=== PATIENT | female | born 1990 | race Caucasian/White ===

== ENCOUNTER → 2016-09-30 | Outpatient (CLI) | payer OTHER ==
[~2016-09-30] MED LIST: ACET-1311 PO; BCPILLS PO; DIPH25CA65 PO; MISC-696; ONDA4TAB10 SL; PREN0.12 PO; TAMS0.4C38 PO; TRAM-10 PO
== END | disposition home or self-care (01) ==
LOC: C.LAB1850 08:13
PROVIDERS: ATTEND Obstetrics & Gynecology
DX: Z32.00 Encounter for pregnancy test, result unknown (principal)

== ENCOUNTER → 2016-10-23 | Outpatient (CLI) | payer OTHER ==
[2016-10-23 13:38] LABS: URINE APPEARANCE CLEAR (CLEAR); URINE BILIRUBIN NEG (NEG); URINE COLOR DK YELLOW; URINE NITRITE NEG (NEG); URINE SPECIFIC GRAVITY 1.023 (1.000-1.030); UROBILINOGEN NEG (NEG)
[2016-10-23 13:43] LABS: MANUAL MICROSCOPIC REQUIRED? NO; REVIEW REQ? NO
== END | disposition home or self-care (01) ==
LOC: C.LABSPEC 13:36
PROVIDERS: ATTEND Obstetrics & Gynecology
DX: O09.01 Supervision of pregnancy with history of infertility, first trimester (principal); Z3A.00 Weeks of gestation of pregnancy not specified

== ENCOUNTER → 2016-11-01 | Outpatient (CLI) | payer OTHER ==
[2016-11-01 17:29] LABS: BASO % 0.4 %; BASO ABS # 0.04 K/uL (0-0.2); COMPLETE YES; EOS % 2.8 %; HEMATOCRIT 39.3 % (37-47); IG% 0.4 %; LYMPH % 26.4 %; LYMPH ABS # 2.56 K/uL (1.2-3.4); MEAN CELL VOLUME 88.3 fL (80-100); MEAN CORPUSCULAR HEMOGLOBIN 30.3 pg (25-34); MEAN CORPUSCULAR HGB CONC 34.4 g/dl (32-36); MEAN PLATELET VOLUME 10.2 fL (7.4-10.4); PLATELET COUNT 203 K/uL (130-400); RED BLOOD COUNT 4.45 M/uL (4.2-5.4); WHITE BLOOD COUNT 9.69 K/uL (4.8-10.8)
== END | disposition home or self-care (01) ==
LOC: C.LAB1850 16:43
PROVIDERS: ATTEND Obstetrics & Gynecology
DX: O09.01 Supervision of pregnancy with history of infertility, first trimester (principal); Z3A.00 Weeks of gestation of pregnancy not specified

== ENCOUNTER → 2016-11-01 | Outpatient (CLI) | payer OTHER ==
[2016-11-05 04:24] LABS: CHLAMYDIA TRACH RNA*** NOT DETECTED (NOT DETECTED); GC (NEIS GONORRHOEAE)RNA** NOT DETECTED (NOT DETECTED)
== END | disposition home or self-care (01) ==
LOC: C.LABSPEC 17:38
PROVIDERS: ATTEND Obstetrics & Gynecology
DX: O09.01 Supervision of pregnancy with history of infertility, first trimester (principal); Z3A.00 Weeks of gestation of pregnancy not specified

== ENCOUNTER → 2016-12-27 | Outpatient (CLI) | payer OTHER ==
[~2016-12-27] MED LIST changes: -MISC-696
[2016-12-27 15:22] LABS: GTGD 50 Grams
== END | disposition home or self-care (01) ==
LOC: C.LAB1850 10:28
PROVIDERS: ATTEND Obstetrics & Gynecology
DX: O09.01 Supervision of pregnancy with history of infertility, first trimester (principal); Z3A.00 Weeks of gestation of pregnancy not specified

== ENCOUNTER 2017-01-08 18:52 | Emergency (ER) | payer OTHER ==
[~2017-01-08] VITALS: Ht 160 cm; Wt 74.5 kg
[~2017-01-08 18:52] MED LIST changes: -PREN0.12 PO
[2017-01-08 18:58] VITALS: TEMP 36.6; Ht 160 cm; Wt 74.5 kg
[2017-01-08] MEDS ORDERED: SODIUM CHLORIDE 0.9% 1000ML 1,000 ML IV ONE (19:30)
[2017-01-08] MEDS ORDERED: PREN0.12 PO (19:35)
[2017-01-08 19:51] VITALS: O2SAT 99
[2017-01-08 20:06] LABS: URINE APPEARANCE CLEAR (CLEAR); URINE BILIRUBIN NEG (NEG); URINE COLOR YELLOW; URINE NITRITE NEG (NEG); URINE PH 6.5 (4.5-7.5); URINE SPECIFIC GRAVITY 1.019 (1.000-1.030); UROBILINOGEN NEG (NEG); ZZUR CULT IF INDIC CLEAN CATCH NO
[2017-01-08 20:13] LABS: BASO % 0.2 %; BASO ABS # 0.02 K/uL (0-0.2); COMPLETE YES; HEMATOCRIT 35.6 % (37-47); IG% 0.2 %; LYMPH % 25.5 %; LYMPH ABS # 2.29 K/uL (1.2-3.4); MEAN CELL VOLUME 87.5 fL (80-100); MEAN CORPUSCULAR HEMOGLOBIN 30.2 pg (25-34); MEAN CORPUSCULAR HGB CONC 34.6 g/dl (32-36); MEAN PLATELET VOLUME 10.2 fL (7.4-10.4); MONO % 6.6 %; NEUT % 65.5 %; PLATELET COUNT 192 K/uL (130-400); RED BLOOD COUNT 4.07 M/uL (4.2-5.4); WHITE BLOOD COUNT 8.98 K/uL (4.8-10.8)
[2017-01-08 20:13] LABS: MANUAL MICROSCOPIC REQUIRED? NO; REVIEW REQ? NO
--- NOTE | 2017-01-08 20:20 | DIAGNOSTIC IMAGING REPORT ---
CHEST 2 VIEWS ROUTINE CLINICAL HISTORY: Dyspnea on exertion. 18wk . COMPARISON STUDY: Chest radiograph August 23, 2015. FINDINGS: The lung volumes are normal. No pneumothorax or pleural effusion is present. Cardiac size is normal. Mediastinal contours are normal. There is no evidence of pulmonary edema. The appearance of the chest is unchanged. IMPRESSION: No acute cardiopulmonary findings. Electronically signed by: Adolfo Rodriguez M.D. 01/08/2017 8:19 PM Dictated Date/Time: 01/08/2017 8:18 PM
[2017-01-08 20:25] LABS: BUN/CREATININE RATIO 13.1 (10-20); CALCIUM 8.8 mg/dl (8.5-10.1); CREATININE 0.54 mg/dl (0.60-1.20); MAGNESIUM 1.9 mg/dl (1.8-2.4); POTASSIUM 3.5 mmol/L (3.5-5.1)
[2017-01-08 20:35] LABS: ALB/GLOB RATIO 0.9 (0.9-2); THYROID STIMULATING HORMONE 1.66 uIu/ml (0.300-4.500)
[2017-01-08 21:05] LABS: LYME DISEASE AB IGM NEG (NEG)
[2017-01-08 21:06] LABS: LYME DISEASE AB IGG NEG (NEG)
--- NOTE | 2017-01-08 21:07 | DIAGNOSTIC IMAGING REPORT ---
BILATERAL LOWER EXTREMITY VENOUS DOPPLER CLINICAL HISTORY: Dyspnea on exertion. +preg. Recent travel COMPARISON STUDY: No previous studies for comparison. TECHNIQUE: Sonography of the deep venous system of the bilateral lower extremities was performed. Compression and augmentation were evaluated. FINDINGS: The bilateral common femoral, superficial femoral and popliteal veins were compressible. Augmentation was normal. Flow was shown within the deep calf vessels. IMPRESSION: No evidence of deep venous thrombus within the bilateral lower extremities. Electronically signed by: Adolfo Rodriguez M.D. 01/08/2017 9:06 PM Dictated Date/Time: 01/08/2017 9:05 PM
[2017-01-08 21:40] VITALS: BP 106/69; PULSE 94; O2SAT 99
--- NOTE | 2017-01-09 00:43 | EMERGENCY ROOM VISIT NOTE ---
History First contact with patient: 18:55 Chief Complaint: REFERRED BY DOCTOR Stated Complaint: TACHY History of Present Illness The patient is a 26 year old female who presents to the Emergency Room with complaints of persistent tachycardia in the 130s over the past several hours. 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 The patient is an otherwise healthy 18 week female who states that her symptoms are atypical for her. She is not experiencing lightheadedness, dizziness, neck pain, chest pain, abdominal pain, dysuria, or vaginal drainage/bleeding. The patient has not been vomiting and has been eating and drinking as normal. She states that her symptoms are worse when she stands and walks, as this is when she notices her heart rate elevate. When this occurs the patient feels somewhat short of breath without pain. She does have a recent travel history to [facility], but has not had significant pain or swelling in her bilateral legs. She rates her overall discomfort a 2/10 and has not taken anything [id number] for her symptoms. She is currently on vitamins but no other chronic medications. She has had an uncomplicated to this point. Review of Systems More than 10 systems were reviewed and otherwise negative with the exception of history of present illness. Past Medical/Surgical History Medical Problems: (1) Asthma (2) Pneumonia (3) Scoliosis (4) Tonsillectomy and adenoidectomy Family History Patient reports no known family medical history. Social History Smoking Status: Never Smoker Alcohol Use: none Drug Use: none Marital Status: single Occupation Status: employed Current/Historical Medications Scheduled Vit W/ Ferrous Fumara (), 1 TAB PO DAILY Scheduled PRN Acetaminophen (Tylenol), 650 MG PO Q8 PRN for Pain Diphenhydramine Hcl (Benadryl Allergy), 50 MG PO HS PRN for Sleep Allergies Coded Allergies: Aspirin (Verified Allergy, Severe, Stomach Pain, 01/08/17) Promethazine (Verified Allergy, Intermediate, RASH, 01/08/17) Sulfamethoxazole w/Trimethoprim (Verified Allergy, Intermediate, rash, 06/15) Physical Exam Vital Signs Date Time Temp Pulse Resp B/P (MAP) Pulse Ox O2 Delivery O2 Flow Rate FiO2 01/08/17 21:40 94 16 106/69 99 01/08/17 20:30 92 01/08/17 20:12 95 18 115/79 97 125/80 98 113/88 01/08/17 20:01 116/77 01/08/17 19:51 99 Room Air 01/08/17 18:58 36.6 93 18 122/77 99 Room Air Pain Rating (0-10): 0 Physical Exam VITALS: Vitals are noted on the nurse's note and reviewed by myself. Vital signs stable. GENERAL: Well-developed, well-nourished, white female, who is in no acute distress and resting comfortably. Patient is cooperative with the examination. HEAD: Normocephalic atraumatic. MOUTH: Mucous membranes moist. Tonsils are not enlarged. Pharynx without erythema, blood, or exudate. Uvula midline. Airway patent. NECK: Supple without nuchal rigidity. No lymphadenopathy. No thyromegaly. Cervical spine is nontender. HEART: Regular rate and rhythm without murmurs gallops or rubs. LUNGS: Clear to auscultation bilaterally without wheezes, rales or rhonchi. No retractions or accessory muscle use. ABDOMEN: Positive normal bowel sounds x 4. Soft and consistent with 18 week . No tenderness. No guarding or rebound tenderness. MUSCULOSKELETAL: No muscle atrophy, erythema, or edema noted. Full range of motion without joint tenderness in all extremities. No tenderness to palpation. Normal gait. Strength 5/5 throughout. NEURO: Patient was alert and oriented to person place and time. CN II through XII grossly intact. SKIN: The skin was without rashes, erythema, edema, or bruising. Capillary reflex less than 2 seconds. Medical Decision & Procedures ER Provider Diagnostic Interpretation: BILATERAL LOWER EXTREMITY VENOUS DOPPLER CLINICAL HISTORY: Dyspnea on exertion. +preg. Recent travel COMPARISON STUDY: No previous studies for comparison. TECHNIQUE: Sonography of the deep venous system of the bilateral lower extremities was performed. Compression and augmentation were evaluated. FINDINGS: The bilateral common femoral, superficial femoral and popliteal veins were compressible. Augmentation was normal. Flow was shown within the deep calf vessels. IMPRESSION: No evidence of deep venous thrombus within the bilateral lower extremities. CHEST 2 VIEWS ROUTINE CLINICAL HISTORY: Dyspnea on exertion. 18wk . COMPARISON STUDY: Chest radiograph August 23, 2015. FINDINGS: The lung volumes are normal. No pneumothorax or pleural effusion is present. Cardiac size is normal. Mediastinal contours are normal. There is no evidence of pulmonary edema. The appearance of the chest is unchanged. IMPRESSION: No acute cardiopulmonary findings. Laboratory Results 01/08/17 19:40 Red Blood Count 4.07, Mean Corpuscular Volume 87.5, Mean Corpuscular Hemoglobin 30.2, Mean Corpuscular Hemoglobin Concent 34.6, Mean Platelet Volume 10.2, Neutrophils (%) (Auto) 65.5, Lymphocytes (%) (Auto) 25.5, Monocytes (%) (Auto) 6.6, Eosinophils (%) (Auto) 2.0, Basophils (%) (Auto) 0.2, Neutrophils # (Auto) 5.88, Lymphocytes # (Auto) 2.29, Monocytes # (Auto) 0.59, Eosinophils # (Auto) 0.18, Basophils # (Auto) 0.02 01/08/17 19:40 Test 01/08/17 19:30 01/08/17 19:40 01/08/17 19:50 Urine Color YELLOW Urine Appearance CLEAR (CLEAR) Urine pH 6.5 (4.5-7.5) Urine Specific [place] 1.019 (1.000-1.030) Urine Protein NEG (NEG) Urine Glucose (UA) NEG (NEG) Urine Ketones NEG (NEG) Urine Occult Blood NEG (NEG) Urine Nitrite NEG (NEG) Urine Bilirubin NEG (NEG) Urine Urobilinogen NEG (NEG) Urine Leukocyte Esterase NEG (NEG) White Blood Count 8.98 K/uL (4.8-10.8) Red Blood Count 4.07 M/uL (4.2-5.4) Hemoglobin 12.3 g/dL (12.0-16.0) Hematocrit 35.6 % (37-47) Mean Corpuscular Volume 87.5 fL (80-100) Mean Corpuscular Hemoglobin 30.2 pg (25-34) Mean Corpuscular Hemoglobin Concent 34.6 g/dl (32-36) Platelet Count 192 K/uL (130-400) Mean Platelet Volume 10.2 fL (7.4-10.4) Neutrophils (%) (Auto) 65.5 % Lymphocytes (%) (Auto) 25.5 % Monocytes (%) (Auto) 6.6 % Eosinophils (%) (Auto) 2.0 % Basophils (%) (Auto) 0.2 % Neutrophils # (Auto) 5.88 K/uL (1.4-6.5) Lymphocytes # (Auto) 2.29 K/uL (1.2-3.4) Monocytes # (Auto) 0.59 K/uL (0.11-0.59) Eosinophils # (Auto) 0.18 K/uL (0-0.5) Basophils # (Auto) 0.02 K/uL (0-0.2) RDW Standard Deviation 39.9 fL (36.4-46.3) RDW Coefficient of Variation 12.5 % (11.5-14.5) Immature Granulocyte % (Auto) 0.2 % Immature Granulocyte # (Auto) 0.02 K/uL (0.00-0.02) Anion Gap 10.0 mmol/L (3-11) Est Creatinine Clear Calc Drug Dose 149.9 ml/min Estimated GFR () 148.8 Estimated GFR (Non- 128.4 BUN/Creatinine Ratio 13.1 (10-20) Calcium Level 8.8 mg/dl (8.5-10.1) Magnesium Level 1.9 mg/dl (1.8-2.4) Total Bilirubin 0.2 mg/dl (0.2-1) Aspartate Amino Transf (AST/SGOT) 11 U/L (15-37) Alanine Aminotransferase (ALT/SGPT) 21 U/L (12-78) Alkaline Phosphatase 62 U/L (45-117) Total Protein 7.0 gm/dl (6.4-8.2) Albumin 3.3 gm/dl (3.4-5.0) Globulin 3.7 gm/dl (2.5-4.0) Albumin/Globulin Ratio 0.9 (0.9-2) Thyroid Stimulating Hormone (TSH) 1.660 uIu/ml (0.300-4.500) Lyme Disease IgG Antibody NEG (NEG) Lyme Disease IgM Antibody NEG (NEG) Bedside Troponin I < 0.030 ng/ml (0-0.045) Medications Administered Medications (Trade) Dose Ordered Sig/Zeyad Route Start Time Stop Time Status Last Admin Dose Admin Sodium Chloride 1,000 ml @ 999 mls/hr Q1H1M ONCE IV 01/08/17 19:30 01/08/17 20:30 DC 01/08/17 20:12 999 MLS/HR ECG Change: Normal sinus rhythm @83 bpm Normal ECG ED Course Physical exam and history were performed. Nursing notes and EMR were reviewed. Patient appears to have had intermittent tachycardia throughout the day. She is 18 weeks . EKG was performed and was normal sinus rhythm at 83 beats per minute without evidence of ischemia or ectopy. The patient is not having abdominal pain or vaginal complaints. IV access was established and labs were obtained. Chest x-ray was performed. She has a recent travel history by car to [facility], and ultrasound of her legs was performed. heart tones were 141. The patient's blood work is as above and was reviewed. She does not have a significant elevated white blood cell count, gross anemia, bandemia, or significant electrolyte imbalance. Transaminases are nondiagnostic. Troponin 1 is negative. Urine is without evidence of infection. Chest x-ray does not show acute findings. Ultrasound of the bilateral lower extremities is without evidence of DVT. TSH is euthyroid state. On reevaluation the patient continued to be very comfortable and in no acute distress. I did offer options of a d-dimer test, with the understanding that if this was positive we would likely have to admit the patient for a VQ scan. Utilizing shared decision making the patient and we elected to defer this test, as the patient's evaluation to this point has been benign and she has been without gross tachycardia here in the department. The patient is considered very reliable, and understands that she is certainly welcome to return to the ER with any new, worsening, or concerning symptoms. Her symptoms could certainly be related to dehydration or possibly her . I do recommend that she contact her primary care physician and OB/ [facility] for appropriate follow-up. The patient will be discharged home under the care of her , who will be able to monitor her. The patient was pleased with plan of care and voiced understanding. She rated her discomfort a 0/10 at the time of departure. The chart was completed utilizing [employer] Speech Voice Recognition Software. Grammatical errors, random word insertions, pronoun errors, and incomplete sentences are an occasional consequence of this system due to software limitations, ambient noise, and hardware issues. Any formal questions or concerns about the content, text, or information contained within the body of this dictation should be directly addressed to the provider for clarification. . Medical Decision Differential diagnosis includes, but is not limited to: Myocardial infarction, dysrhythmia, pericarditis, pneumothorax, aortic aneurysm/dissection, DVT/PE, anxiety, GERD, PUD, electrolyte imbalance, thyroid disorder, pneumonia, bronchitis, pancreatitis, and others Impression Primary Impression: Tachycardia Departure Information Dispostion Home / Self-Care Condition GOOD Forms HOME CARE DOCUMENTATION FORM, Work Instructions, Additional Instructions: Patient was seen and evaluated today in the emergency department [facility]. May return to work on 01/11/2017 or sooner if feeling better. IMPORTANT VISIT INFORMATION Patient Instructions [facility] Additional Instructions You were seen and evaluated today on an emergency basis only. This is not a substitute for, or an effort to provide, complete comprehensive medical care. It is not possible to recognize and treat all injuries or illnesses in a single emergency department visit. For this reason it is recommended that you followup with your primary care physician with any ongoing or persistent symptoms. We also recommend that you contact your [facility] [employer]MAN as they may wish to see you as well. Drink plenty of fluids and remain well hydrated. You are welcome to return to the emergency department anytime with new, worsening, or concerning symptoms. Work Instructions Additional Work Instructions: Patient was seen and evaluated today in the emergency department medical care. May return to work on 01/11/2017 or sooner if feeling better.
== END 2017-01-08 21:40 | disposition home or self-care (01) ==
LOC: C.EDB 18:53 → C.EDA 21:40
DX: R00.0 Tachycardia, unspecified (principal); J45.909 Unspecified asthma, uncomplicated

== ENCOUNTER → 2017-02-12 | Outpatient (CLI) | payer OTHER ==
[~2017-02-12] MED LIST changes: -BCPILLS PO; -ONDA4TAB10 SL; +PREN0.12 PO; -TAMS0.4C38 PO; -TRAM-10 PO
--- NOTE | 2017-02-12 11:34 | DIAGNOSTIC IMAGING REPORT ---
EXAMINATION: RENAL ULTRASOUND CLINICAL HISTORY: Left flank pain COMPARISON STUDY: 08/16/2015 FINDINGS: The right kidney measures 12.1 cm. The left kidney measures 12.5 cm. There is minimal fullness of the left renal pelvis. Significant obstruction is not felt to be present as bilateral ureteral jets were delineated. There are no renal masses. There is a suspected gravid uterus. No bladder abnormalities are visualized. Bilateral ureteral jets were visualized. IMPRESSION : 1. Minimal fullness of a extrarenal left pelvis 2. Significant obstruction is not felt to be present. Bilateral ureteral jets were demonstrated Electronically signed by: Ibrahima Sewell M.D. 02/12/2017 11:33 AM Dictated Date/Time: 02/12/2017 11:30 AM
== END | disposition home or self-care (01) ==
LOC: C.ULTR 10:25
PROVIDERS: ATTEND Nurse Practitioner Adult Health
DX: R10.9 Unspecified abdominal pain (principal)

== ENCOUNTER → 2017-03-21 | Outpatient (CLI) | payer OTHER ==
[2017-03-21 14:38] LABS: URINE APPEARANCE CLEAR (CLEAR); URINE BILIRUBIN NEG (NEG); URINE COLOR DK YELLOW; URINE EPITHELIAL CELL AUTO 20-30 /lpf (0-5); URINE NITRITE NEG (NEG); URINE SPECIFIC GRAVITY 1.019 (1.000-1.030); UROBILINOGEN NEG (NEG)
[2017-03-21 14:47] LABS: MANUAL MICROSCOPIC REQUIRED? NO; REVIEW REQ? YES
== END | disposition home or self-care (01) ==
LOC: C.LABSPEC 13:48
PROVIDERS: ATTEND Obstetrics & Gynecology
DX: O09.02 Supervision of pregnancy with history of infertility, second trimester (principal); Z3A.00 Weeks of gestation of pregnancy not specified

== ENCOUNTER → 2017-03-21 | Outpatient (CLI) | payer OTHER ==
[2017-03-21 13:14] LABS: HEMATOCRIT 35.7 % (37-47)
[2017-03-21 13:42] LABS: GTGD 50 Grams
== END | disposition home or self-care (01) ==
LOC: C.LAB1850 11:01
PROVIDERS: ATTEND Obstetrics & Gynecology
DX: O09.02 Supervision of pregnancy with history of infertility, second trimester (principal); Z3A.00 Weeks of gestation of pregnancy not specified

== ENCOUNTER → 2017-03-27 | Outpatient (CLI) | payer OTHER | END | disposition home or self-care (01) | LOC: C.LAB1850 08:35 | PROVIDERS: ATTEND Obstetrics & Gynecology | DX: O28.1 Abnormal biochemical finding on antenatal screening of mother (principal); Z3A.00 Weeks of gestation of pregnancy not specified ==

== ENCOUNTER → 2017-05-12 | Outpatient (CLI) | payer OTHER | END | disposition home or self-care (01) | LOC: C.LABSPEC 15:44 | PROVIDERS: ATTEND Obstetrics & Gynecology | DX: O09.03 Supervision of pregnancy with history of infertility, third trimester (principal) ==

== ENCOUNTER 2017-05-18 11:06 | Outpatient (CLI) | payer OTHER ==
[~2017-05-18] VITALS: Ht 160 cm; Wt 83.9 kg
[2017-05-18 11:55] VITALS: Ht 160 cm; Wt 83.9 kg
[2017-05-18 12:21] LABS: BASO % 0.3 %; BASO ABS # 0.03 K/uL (0-0.2); COMPLETE YES; HEMATOCRIT 40.4 % (37-47); IG% 0.2 %; LYMPH ABS # 2.25 K/uL (1.2-3.4); MEAN CELL VOLUME 87.6 fL (80-100); MEAN CORPUSCULAR HEMOGLOBIN 29.1 pg (25-34); MEAN CORPUSCULAR HGB CONC 33.2 g/dl (32-36); MEAN PLATELET VOLUME 10.8 fL (7.4-10.4); MONO % 6.4 %; NEUT % 68.1 %; PLATELET COUNT 187 K/uL (130-400); RED BLOOD COUNT 4.61 M/uL (4.2-5.4); WHITE BLOOD COUNT 9.36 K/uL (4.8-10.8)
== END 2017-05-18 17:29 | disposition home or self-care (01) ==
LOC: C.OPB 11:06 → C.LD 11:07 → C.OPB 17:29
PROVIDERS: ATTEND Obstetrics & Gynecology
DX: O46.90 Antepartum hemorrhage, unspecified, unspecified trimester (principal); Z3A.00 Weeks of gestation of pregnancy not specified

== ENCOUNTER 2017-05-19 05:03 | Inpatient (IN) | payer OTHER ==
[~2017-05-19] VITALS: Ht 160 cm; Wt 84.0 kg
[2017-05-19 06:17] VITALS: Ht 160 cm; Wt 84.0 kg
[2017-05-19] MEDS ORDERED: ONDANSETRON INJ 2 MG/ML 2 ML VIAL IV STA (07:13)
[2017-05-19] MEDS ORDERED: LACTATED RINGER'S 1000ML 1,000 ML IV PRN (08:40)
[2017-05-19] MEDS ORDERED: BUPIVACAINE 0.25% 30 ML VIAL ONE (08:45)
[2017-05-19] MEDS ORDERED: FENTANYL CITRATE INJ 50 MCG/1 ML 2 ML VIAL ONE (08:46)
[2017-05-19] MEDS ORDERED: FENTANYL 2MCG/ML ROPIV 1.25MG/ML 100ML BAG EPI ONE (08:46)
[2017-05-19] MEDS ORDERED: EpHEDrine SULFATE INJ 50 MG/ML AMP ONE (08:46)
[2017-05-19] MEDS ORDERED: NALOXONE HCL INJ 1 MG in SODIUM CHLORIDE 0.9% 1000ML 1,000 ML IV PRN (09:06)
[2017-05-19] MEDS ORDERED: LACTATED RINGER'S 1000ML 500 ML IV PRN ×2 (09:06→13:09)
[2017-05-19] MEDS: LACTATED RINGER'S 1000ML 1,000 ML IV SCH ×2 (09:12→14:17)
[2017-05-19] MEDS ORDERED: EpHEDrine SULFATE INJ 50 MG/ML AMP IV PRN (09:15)
[2017-05-19] MEDS ORDERED: FENTANYL 2MCG/ML ROPIV 1.25MG/ML 100ML BAG EPI PRN (09:15)
[2017-05-19] MEDS ORDERED: ONDANSETRON INJ 2 MG/ML 2 ML VIAL IV PRN (09:15)
[2017-05-19] MEDS ORDERED: DiphenhydrAMINE HCL 50 MG/ML VIAL IV PRN (09:15)
[2017-05-19] MEDS ORDERED: NALBUPHINE HCL INJ 10 MG/ML AMP IV PRN (09:15)
[2017-05-19] MEDS ORDERED: NALOXONE HCL INJ 0.4 MG/1 ML VIAL/CARP IV PRN (09:15)
[2017-05-19 09:16] LABS: HEMATOCRIT 36.9 % (37-47); MEAN CELL VOLUME 87.2 fL (80-100); MEAN CORPUSCULAR HEMOGLOBIN 29.3 pg (25-34); MEAN PLATELET VOLUME 11.2 fL (7.4-10.4); PLATELET COUNT 168 K/uL (130-400); RED BLOOD COUNT 4.23 M/uL (4.2-5.4); WHITE BLOOD COUNT 13.31 K/uL (4.8-10.8)
[2017-05-19 09:23] LABS: MEAN CORPUSCULAR HGB CONC 33.6 g/dl (32-36)
[2017-05-19] MEDS ORDERED: OXYTOCIN 30 UNITS/500ML NSS IV PRN ×2 (13:15→19:45)
[2017-05-19] MEDS ORDERED: HYDROCORTISONE ACETATE 25 MG SUPP PR PRN (19:45)
[2017-05-19] MEDS ORDERED: LANOLIN OINT EXT PRN ×2 (19:45)
[2017-05-19] MEDS ORDERED: SUPERCREAM 0.870 % 15GM JAR EXT PRN (19:45)
[2017-05-19] MEDS ORDERED: BENZOCAINE 20% AER SPR 82.5 GM CAN EXT PRN (19:45)
[2017-05-19] MEDS: OXYCODONE/ACETAMINOPHEN 5-325 TAB PO PRN (20:03)
--- NOTE | 2017-05-19 20:03 | Anesthesia Procedure Note ---
Anesthesia Epidural Removal Nt Date & Time May 19, 2017 at 20:03 Vital Signs Pain Intensity: 5.0 Notes Mental Status: alert / awake / arousable, participated in evaluation Nausea / Vomiting: adequately controlled Pain: adequately controlled Airway Patency, RR, SpO2: stable & adequate BP & HR: stable & adequate Hydration State: stable & adequate Neuraxial Anesthesia: was administered Anesthetic Complications: no major complications apparent, pt satisfied with anesthetic care Epidural: removed without complications, with tip intact
--- NOTE | 2017-05-19 20:14 | DELIVERY SUMMARY ---
DATE OF OPERATION: 05/19/2017 DELIVERING SURGEON: Clarita James DO. PROCEDURE: Spontaneous vaginal delivery and repair of third degree perineal laceration. PREDELIVERY DIAGNOSES: 1. A 26-year-old G1, P0 at 37 weeks 0 days. 2. Spontaneous labor. 3. History of anxiety and depression. 4. History of kidney stones. 5. History of her recent blood type 1 infection. POSTOPERATIVE DELIVERY DIAGNOSES: Same plus third degree perineal laceration. ESTIMATED BLOOD LOSS: 300 mL. FINDINGS: Viable male with Apgars 8, 9, weight pending. Please see nursery records. DESCRIPTION OF DELIVERY: The patient had presented in spontaneous labor and under epidural anesthesia progressed to complete. She labored down and then began to push. She then spontaneously vaginally delivered a viable male from the cephalic presentation in the left occiput anterior position. The head delivered. No nuchal cord was noted. The anterior shoulder followed by the posterior shoulder were delivered followed by the body. The baby was placed on mother's abdomen and then a spontaneous cry was heard. The cord was doubly clamped and cut. A segment was retained for cord gases. Cord blood was obtained. The placenta then delivered spontaneously intact with a 3-vessel cord. The Pitocin was given. The uterus became firm. The uterus and vagina were swept of all clots and debris. The cervix, vagina and perineum were inspected and a third degree perineal laceration was noted. Rectal exam revealed no entry into the rectal mucosa. It was reinforced with a [id number] stitch supporting the rectal fascia not entering the rectum. The area was anesthetized with 1% lidocaine. The anal sphincter edges were grasped with an Allis clamp on each side and brought together and reapproximated end-to-end using 3-0 chromic [id number]-[id number] suture. After closure of the anal sphincter, the resultant second-degree perineal laceration was reapproximated in standard fashion using 3-0 Vicryl in a running locked stitch. Examination at the conclusion of the repair, rectal examination revealed no sutures in the rectum. The patient tolerated the delivery well. She and the baby are recovering in stable and in good condition in the room. All instrument, sponge and needle counts are correct at the conclusion of the delivery x2. I attest to the content of the Intraoperative Record and any orders documented therein. Any exceptions are noted below. MTDD
[2017-05-19 23:15] VITALS: BP 116/75; PULSE 108; TEMP 36.8; O2SAT 97
[2017-05-20] MEDS ORDERED: NURSING VERBAL MED ORDER ONE (01:00)
[2017-05-20] MEDS: IBUPROFEN 600 MG TAB PO PRN ×4 (01:11→19:19)
[2017-05-20 03:40] VITALS: BP 109/69; PULSE 97; TEMP 37; O2SAT 97
--- NOTE | 2017-05-20 07:46 | Progress Note ---
Subjective May 20, 2017. Subjective conversation w/ patient, physical exam, chart review, lab review Ambulation: ambulating normally Voiding: no voiding problems Passing Gas: Yes Diet Tolerance: Regular Diet Lochia: Moderate Feeding Type: Breast Feeding Pain: controlled Review of Systems Respiratory: No shortness of breath, No dyspnea on exertion Cardiac: No chest pain Abdomen: No nausea, No vomiting Objective Vital Signs Date Time Temp Pulse Resp B/P (MAP) Pulse Ox O2 Delivery O2 Flow Rate FiO2 05/20/17 03:40 37.0 97 18 109/69 (82) 97 Room Air 05/19/17 23:15 97 Room Air 05/19/17 23:15 36.8 108 18 116/75 (89) 97 Room Air Physical Exam General Appearance: WELL-APPEARING, WD/WN, NO APPARENT DISTRESS Respiratory/Chest: lungs clear, normal breath sounds, no respiratory distress Cardiovascular: regular rate, rhythm, no gallop, no murmur Abdomen: normal bowel sounds, soft Fundus: Firm, Tender (appropriately tender), Relation to Umbilicus (1 below U) Extremities: non-tender, normal inspection, no pedal edema Laboratory Results Last 24 Hours Test 05/19/17 08:46 05/20/17 04:44 White Blood Count 13.31 K/uL Red Blood Count 4.23 M/uL Hemoglobin 12.4 g/dL Hematocrit 36.9 % Mean Corpuscular Volume 87.2 fL Mean Corpuscular Hemoglobin 29.3 pg Mean Corpuscular Hemoglobin Concent 33.6 g/dl RDW Standard Deviation 41.8 fL RDW Coefficient of Variation 13.1 % Platelet Count 168 K/uL Mean Platelet Volume 11.2 fL Assessment and Plan Post- Day#: 1 Continue Routine Care: O + / GBS - / RI Hbg 12.4, today pending. Pt's pain is controlled Encourage ambulation, , continue motrin/tylenol Continue routine post care JORGE YAÑEZ PGY 1 FMR Resident Physician Supervision Note: I was present with Dr. Yañez during the history and exam. I discussed the case with the resident and agree with the findings and plan as documented in the note. Any exceptions or clarifications are listed here: Doing well. Continue routine care. Documented By: Clarita James Resident Tracking Resident Involvement: Resident Care Provided Care Provided: OB Delivery
[2017-05-20 08:00] VITALS: BP 96/64; PULSE 92; TEMP 36.9
[2017-05-20] MEDS: DOCUSATE SODIUM 100 MG CAP PO SCH ×2 (08:00→20:10)
[2017-05-20 09:18] LABS: HEMATOCRIT 33.3 % (37-47)
[2017-05-20] MEDS: OXYCODONE/ACETAMINOPHEN 5-325 TAB PO PRN (10:37)
[2017-05-20 11:30] VITALS: BP 97/66; PULSE 85; TEMP 36.5
[2017-05-20 15:15] VITALS: BP 106/70; PULSE 89; TEMP 36.6
[2017-05-20] MEDS ORDERED: BISACODYL 5 MG TABEC PO SCH (20:00)
[2017-05-21 00:35] VITALS: BP 102/67; PULSE 90; TEMP 36.7; O2SAT 97
[2017-05-21] MEDS: IBUPROFEN 600 MG TAB PO PRN ×2 (00:54→07:51)
[2017-05-21] MEDS: OXYCODONE/ACETAMINOPHEN 5-325 TAB PO PRN (02:19)
--- NOTE | 2017-05-21 07:12 | Progress Note ---
Subjective May 21, 2017. Subjective conversation w/ patient, physical exam, chart review, lab review Ambulation: ambulating normally Voiding: no voiding problems Passing Gas: Yes Diet Tolerance: Regular Diet Lochia: Moderate Feeding Type: Breast Feeding Pain: controlled Review of Systems Respiratory: No shortness of breath Abdomen: No nausea, No vomiting Female : No dysuria Objective Vital Signs Date Time Temp Pulse Resp B/P (MAP) Pulse Ox O2 Delivery O2 Flow Rate FiO2 05/21/17 00:35 36.7 90 20 102/67 (79) 97 Room Air 05/21/17 00:35 97 Room Air 05/20/17 15:15 36.6 89 18 106/70 (82) Room Air 05/20/17 11:30 36.5 85 18 97/66 (76) Room Air 05/20/17 08:00 Room Air 05/20/17 08:00 36.9 92 18 96/64 (75) Room Air Physical Exam General Appearance: WELL-APPEARING, WD/WN, NO APPARENT DISTRESS Respiratory/Chest: lungs clear, normal breath sounds, no respiratory distress Cardiovascular: regular rate, rhythm, no gallop Abdomen: normal bowel sounds, soft Fundus: Firm, Tender (appropriately tender), Relation to Umbilicus (1 below U) Extremities: non-tender, normal inspection, no pedal edema Laboratory Results Last 24 Hours Test 05/20/17 08:47 Hemoglobin 10.9 g/dL Hematocrit 33.3 % Assessment and Plan Post- Day#: 2 Continue Routine Care: O + / GBS - / RI Hbg 12.4, yesterday 10.9. Stable. Pt's pain is controlled Encourage ambulation, , continue motrin/tylenol Continue routine post care. Anticipate DC today, reviewed DC instructions. JORGE YAÑEZ PGY 1 FMR Resident Physician Supervision Note: I interviewed and examined the patient. Discussed with Dr. Yañez and agree with findings and plan as documented in the note. Any exceptions or clarifications are listed here: Doing well. Plan d/c. Instructions reviewed. Documented By: Sandrita Elise Resident Tracking Resident Involvement: Resident Care Provided Care Provided: OB Delivery
--- NOTE | 2017-05-21 07:26 | Discharge Instructions ---
Discharge Instructions Date of Service May 21, 2017. Admission Reason for Admission: Labor Check Discharge Discharge Diagnosis / Problem: Spontaneous Vaginal Delivery Discharge Goals Goal(s): Routine recovery after delivery Medications Continue Dispensed Medications: supercream, dermaplast, tucks, lansinoh Activity Recommendations Activity Limitations: per Instructions/Follow-up section . Instructions / Follow-Up Instructions / Follow-Up If you need a sleeping aid, remember to take as little as possible, so as not to miss any cycles over night. ACTIVITY RECOMMENDATIONS: * Gradual return to full activity over the next 2-3 weeks. * No lifting - nothing heavier than baby over the next 2-3 weeks. * Do not engage in vigorous exercise, sexual activity or sports until cleared by your physician. * Do not drive or operate any motorized equipment until cleared by your physician. * You may shower/bathe daily. MEDICATIONS: For discomfort or pain, you may use Acetaminophen (Tylenol), Ibuprofen (Advil), or Naproxen (Aleve) following the package directions. For constipation you may use Colace following the package directions. BREAST CARE: If you are not breast feeding: * Wear a supportive bra 24 hours a day for one to two weeks. * Avoid stimulating your breasts and nipples as much as possible during the first few weeks after delivery. * When taking a shower, have the warm water hit your back, not breasts. * When your breasts feel full, apply ice packs. Usually three to four times a day helps ease the discomfort. * Take a mild pain medication (Tylenol / Motrin) when you are uncomfortable. If breast feeding: * Use breast milk to lubricate nipples. Lansinoh cream may be used for sore nipples. You do not need to remove cream prior to breast feeding. If using a different brand of cream, check the label for directions regarding removal of cream prior to nursing. * Wear a supportive bra. * If having problems with breasts or breast feeding, call a payroll consultant or your health care provider. EPISIOTOMY CARE: After delivery, if you have an episiotomy (stitches), the following steps will ease discomfort and aid healing. * For the first 24 hours after delivery, place ice packs next to your episiotomy to help reduce swelling. * After the first 24 hour-period, sitz baths, either portable or in the tub, are suggested. A shower with a shower arm sprayed over the episiotomy may be comforting. * Mandy care should be done after each voiding and bowel movement. Squirt warm water from a plastic bottle over the perineum (region of the body between the anus and urinary opening) and pat dry. * Use Dermoplast to ease discomfort. Shake container. Vina directly over the episiotomy. Place a Tucks on a clean sanitary pad next to your episiotomy. SPECIAL CARE INSTRUCTIONS: When you are discharged from the hospital, it is important for you to follow the instructions listed below: * During the first week at home, you should be able to care for yourself and your baby. In addition, the usual light household activities are encouraged. * Limit your activities to the way you feel. Do not try to clean the house or move furniture. Be sensible. * If you actively engage in sports and have done so up until the time of your delivery, you may resume these activities as soon as you feel able. This may take up to one month or even longer. Use good judgment. * Continue to take your vitamins for at least six weeks after the of your baby. * Your diet need not be limited unless you were on a special diet before your delivery. Breast-feeding mothers need around 2500 calories per day and at least 64-80 ounces of fluid per day (8 to 10 glasses). * You should eat foods from the four major food groups. Crash diets or fad diets are to be avoided. Eating lean meats, fresh fruits and vegetables, low-fat dairy products, high fiber foods and a regular exercise program, will help you get back to your pre- weight without putting your health at risk. * Constipation is sometimes a problem after delivery. Take a mild laxative as needed. If breast feeding, Milk of Magnesia is acceptable to use. You may use a suppository or Fleets enema if no episiotomy. * A daily shower or tub bath is suggested. Be sure to thoroughly and gently dry the perineum. * A bloody vaginal discharge will usually continue until around four weeks post . A small amount of bleeding may continue for as long as six weeks. Vaginal discharge changes from the bright red bleeding after delivery to pink then brownish and finally yellowish-pink before becoming white and disappearing. * Bleeding may increase with activity. Your first period may come in 4-8 weeks. If you are breast feeding, your period may be delayed even longer. * [place] (sex) can begin whenever both you and your partner feel comfortable and do not have any form of genital infection. It is recommended that you wait at least six weeks for internal and external healing to occur. If you have questions, please talk to your health care practitioner. A condom should be used to prevent infection and . * Foreplay, gentle intercourse and lubrication is very important the first several times to prevent pain. A water-based lubricant such as K-Y jelly or Astroglide may be used. * If you have RH negative blood and your baby is RH positive, you will receive RHOGAM by injection prior to discharge. The nurse will give you a card to keep with you that has the date and place that you received RHOGAM after delivery. * During your care, you had a Rubella screen done to check for the presence of rubella antibodies in your blood. If your test was negative, you will receive a Rubella vaccine prior to discharge. This vaccine may cause a fever, soreness at the injection site and flu-like symptoms. If these symptoms persist, notify your health care practitioner. is not advised for one month after a Rubella vaccine. * Verbalizes understanding of car seat law as reviewed with patient nursing. * Car Seat hand-out given and reviewed with patient by nursing. * Shaken baby information reviewed with patient by nursing. Call you doctor if: * Heavy bleeding (saturating several pads an hour) or passing clots the size of your fist. * A fever >101 degrees F (38.3 degrees C) on two occasions four hours apart and /or chills. * Unusual pain in the pelvic or vaginal areas. * "Baby Blues" lasting longer than two weeks. If you have any questions or concerns, call your health care practitioner at . FOLLOW UP VISIT: * Please call the office at to schedule a 6 week examination. It is important you keep this appointment. It is important for you to make arrangements for either yearly or twice yearly check-ups thereafter. Current Hospital Diet Patient's current hospital diet: Regular OB Diet Discharge Diet Recommended Diet: Regular Diet Pending Studies Studies pending at discharge: no Medical Emergencies . Who to Call and When: Medical Emergencies: If at any time you feel your situation is an emergency, please call 911 immediately. . Non-Emergent Contact Non-Emergency issues call your: Primary Care Provider . . "Provider Documentation" section prepared by Maria Elena Yañez. . VTE Core Measure Inpt VTE Proph given/why not?: Treatment not indicated
[2017-05-21 07:42] VITALS: BP 111/76; PULSE 95; TEMP 36.7
[2017-05-21] MEDS: DOCUSATE SODIUM 100 MG CAP PO SCH (07:51)
[2017-05-21] MEDS ORDERED: MISC-696 (08:53)
[2017-05-21 13:15] VITALS: BP_DIAS 76; PULSE 95; TEMP 36.7
== END 2017-05-21 13:50 | disposition home or self-care (01) | DRG 775 ==
LOC: C.LD 05:03 → C.OPB 05:03 → C.NSY 08:43 → C.LD 08:43 → C.OBG 22:27
PROVIDERS: ADMIT Obstetrics & Gynecology; ATTEND Obstetrics & Gynecology
PROC: 10E0XZZ Delivery of Products of Conception, External Approach (ICD-10-PCS; principal; 2017-05-19)
PROC: 0DQR0ZZ Repair Anal Sphincter, Open Approach (ICD-10-PCS; principal; 2017-05-19)
DX: O70.20 Third degree perineal laceration during delivery, unspecified (principal); Z37.0 Single live birth; Z3A.37 37 weeks gestation of pregnancy

== ENCOUNTER → 2017-09-24 | Outpatient (CLI) | payer OTHER ==
[~2017-09-24] MED LIST changes: -DIPH25CA65 PO; +MISC-836
--- NOTE | 2017-09-24 08:43 | DIAGNOSTIC IMAGING REPORT ---
KUB CLINICAL HISTORY: N20.0 Calculus of bimohoM92.30 Hydronephrosis of left kidney COMPARISON STUDY: 08/23/2015 FINDINGS: There is no pathologic bowel dilatation. There are no calcifications suspicious for renal calculi. Pelvic basin calcifications likely represent phleboliths. IMPRESSION: 1. No evidence of pathologic bowel dilatation 2. No urinary tract calculi identified on conventional radiographic imaging Electronically signed by: Ibrahima Sewell M.D. 09/24/2017 8:41 AM Dictated Date/Time: 09/24/2017 8:38 AM
== END | disposition home or self-care (01) ==
LOC: C.RAD 08:22
PROVIDERS: ATTEND Urology
DX: N20.0 Calculus of kidney (principal); N13.30 Unspecified hydronephrosis

== ENCOUNTER → 2018-01-16 | Outpatient (CLI) | payer OTHER | END | disposition home or self-care (01) | LOC: C.LAB 09:47 | PROVIDERS: ATTEND Nurse Practitioner Family | DX: Z00.00 Encounter for general adult medical examination without abnormal findings (principal) ==

== ENCOUNTER → 2018-01-19 | Outpatient (CLI) | payer OTHER ==
--- NOTE | 2018-01-19 09:13 | DIAGNOSTIC IMAGING REPORT ---
ABDOMEN FOR HERNIA HISTORY: 27 years-old Female R19.00 Abdominal wall [id number] acute palpable abnormality of the abdominal wall COMPARISON: CT abdomen and pelvis 08/08/2015 TECHNIQUE: Multiple real-time sonographic images of the abdominal wall were obtained assessing grayscale appearance. FINDINGS/IMPRESSION: No hernia or other focal abnormality identified within the abdominal wall. The above report was generated using voice recognition software. It may contain grammatical, syntax or spelling errors. Electronically signed by: Anderson Norwood M.D. 01/19/2018 9:12 AM Dictated Date/Time: 01/19/2018 9:10 AM
== END | disposition home or self-care (01) ==
LOC: C.ULTR 08:46
PROVIDERS: ATTEND Nurse Practitioner Family
DX: R19.00 Intra-abdominal and pelvic swelling, mass and lump, unspecified site (principal)

== ENCOUNTER 2018-11-19 14:14 | Inpatient (IN) ==
[2018-11-19] MEDS ORDERED: OXYTOCIN 30 UNITS/500 ML BAG IV PRN ×2 (14:57→20:04)
--- NOTE | 2018-11-19 15:09 | History & Physical Report ---
Date of Service November 19, 2018 Assessment & Plan (1) with 37 or more completed weeks gestation: fetus category one (2) Normal labor: plan admission. Desires epidural and will place now. After epidural. Arom and then pit if indicated. anticipate . History of Present Illness Chief Complaint: contractions Primary Care Provider: JESSIE Barnhart Patient is a 28yowf with iup at 37 4/7 weeks who presents with painful contractions. no lof/vb. +fm has been uncomplicated. Saw cards for some palpitations, w/u benign. GDM in this diagnosed at 16 weeks, diet controlled labs--O+/ab-/pap nl/ri/rprnr/heb-/hiv-/gc/ct-/cf-/16 week gtt 179/ panorama low risk/gbs neg AC have been 44-58% Allergies Allergy/AdvReac Type Severity Reaction Status Date / Time aspirin Allergy Severe Stomach Verified 11/16/18 19:27 Pain Bactrim Allergy Intermediate rash Verified 05/19/17 06:16 promethazine Allergy Intermediate RASH Verified 11/16/18 19:27 sulfamethoxazole Allergy Intermediate rash Verified 11/16/18 19:27 trimethoprim Allergy Intermediate rash Verified 11/16/18 19:29 Home Medications Home Medications Medication Instructions Recorded Confirmed Type amoxicillin 500 mg PO BID 11/16/18 11/16/18 History doxylamine succinate [Unisom 25 mg PO DAILY 11/16/18 11/16/18 History (doxylamine)] loratadine [Claritin] 10 mg PO DAILY 11/16/18 11/16/18 History vit no.[id number] 1 tab PO DAILY 11/16/18 11/16/18 History [ Vitamin] Patient History Medical History Anxiety Depression Endometriosis Hx of cold sores Kidney stones Yeast infection Surgical History H/O LEEP Hx of tonsillectomy Social History Preferred Language: Algerian Communication Ability: Effective Beliefs That Will Affect Care: None marital status: Current Living Situation: Spouse Current Living Situation Comment: 18 month son Feels Safe at Home: Yes Smoking Status: Never smoker Second Hand Exposure: No Hx Alcohol Use: No Hx Substance Use: No OB History g1--05/17--, 7#14pz, no issues [employer] History hx of leep, hx of lpsc for eosis, conceived on Femara Review of Systems All systems reviewed & are unremarkable except as noted in HPI & below Physical Exam Constitutional: WD/WN, vitals as above Gastrointestinal (Abdomen): soft, gravid, nt Genitourinary: cx--4+/90/-2 toco--q2-4min efm--140s with mod variability, accels to 160s, no decels Results & Data Vital Signs (Past 12 Hours) Vital Signs Temp Pulse Resp BP 11/19/18 14:29 114 H 123/75 11/19/18 14:22 36.9 C 121 H 20 121/85 11/19/18 14:18 121 H 121/85
[2018-11-19 15:19] LABS: Hemoglobin 12.9 g/dL (12.0-16.0); Mean Corpuscular Volume 86.1 fL (80-100); Mean Platelet Volume 10.3 fL (7.4-10.4); Platelet Count 189 K/uL (130-400); RDW Standard Deviation 41.1 fL (36.4-46.3); Red Blood Count 4.18 M/uL (4.2-5.4); White Blood Count 10.19 K/uL (4.8-10.8)
[2018-11-19] MEDS: LACTATED RINGER'S 1,000 ML IV PRN ×2 (15:19→16:15)
[2018-11-19] MEDS ORDERED: BUPIVACAINE 0.25% 30 ML VIAL ONE (15:27)
[2018-11-19] MEDS ORDERED: ePHEDrine sulfate 50 MG/ML AMP ONE (15:27)
[2018-11-19] MEDS ORDERED: fentaNYL citrate 100 MCG/2 ML VIAL ONE (15:28)
[2018-11-19] MEDS ORDERED: fentaNYL 2MCG/ML ROPIV 1.25MG/ML 100 ML BAG EPI ONE (15:29)
[2018-11-19 15:54] LABS: Mean Corpuscular Hgb Conc 35.8 g/dL (32-36)
[2018-11-19] MEDS ORDERED: ePHEDrine sulfate 50 MG/ML AMP IV PRN (16:15)
[2018-11-19] MEDS ORDERED: DiphenhydrAMINE HCL 50 MG/ML VIAL IV PRN (16:15)
[2018-11-19] MEDS ORDERED: ONDANSETRON INJ 2 MG/ML 2 ML VIAL IV PRN (16:15)
[2018-11-19] MEDS ORDERED: fentaNYL 2MCG/ML ROPIV 1.25MG/ML 100 ML BAG EPI PRN (16:15)
[2018-11-19] MEDS ORDERED: NALBUPHINE HCL INJ 10 MG/ML AMP IV PRN (16:15)
[2018-11-19] MEDS ORDERED: NALOXONE HCL 1 MG in SODIUM CHLORIDE 0.9% 1000ML 1,000 ML IV PRN (16:15)
[2018-11-19] MEDS ORDERED: PROMETHAZINE HCL 6.25 MG in SODIUM CHLORIDE 0.9% 50 ML IV PRN (16:15)
[2018-11-19] MEDS ORDERED: NALOXONE HCL 0.4 MG/1 ML VIAL/CARP IV PRN (16:15)
--- NOTE | 2018-11-19 16:15 | Anesthesiology Consultation ---
Date of Service November 19, 2018 Assessment & Plan (1) Encounter for pre-operative examination: Chart Review Chart Review: Patient NOT seen in Pre Admission Testing and Acceptable Risk for Labor Epidural Consults Requested none ASA ASA2 Proposed Anesthesia Anesthesia Type: Labor Epidural Risk / Benefits Reviewed With: PT / POA / Parent / Guardian, Accepts Plan and Informed Consent Obtained History Height/Weight Height: 5 ft 2 in Weight: 81.42 kg Allergies Allergy/AdvReac Type Severity Reaction Status Date / Time aspirin Allergy Severe Stomach Verified 11/16/18 19:27 Pain Bactrim Allergy Intermediate rash Verified 05/19/17 06:16 promethazine Allergy Intermediate RASH Verified 11/16/18 19:27 sulfamethoxazole Allergy Intermediate rash Verified 11/16/18 19:27 trimethoprim Allergy Intermediate rash Verified 11/16/18 19:29 Medications Home Medications Medication Instructions Recorded Confirmed Last Taken amoxicillin 500 mg PO BID 11/16/18 11/16/18 11/16/18 doxylamine succinate [Unisom 25 mg PO DAILY 11/16/18 11/16/18 11/16/18 (doxylamine)] loratadine [Claritin] 10 mg PO DAILY 11/16/18 11/16/18 11/16/18 vit no.[id number]-[id number] 1 tab PO DAILY 11/16/18 11/16/18 11/16/18 [ Vitamin] Active Medications Generic Name Dose Route Start Last Admin Trade Name Freq PRN Reason Stop Dose Admin Lactated Ringer's 1,000 mls @ 125 mls/hr 11/19/18 14:57 11/19/18 15:19 Lr IV 11/21/18 14:56 999 mls/hr .Q8H PRN Administration L&D Protocol Protocol NPO Date Last Intake of Fluids: 11/19/18 Time Last Intake of Fluids: 10:00 Date Last Intake of Solids: 11/19/18 Time Last Intake of Solids: 10:00 Past Medical History Medical History Anxiety Depression Endometriosis Hx of cold sores Kidney stones Yeast infection Exercise / Class Metabolic Activity II 4-5 Yardwork/Stairs/Walk up hill Past Surgical History Surgical History H/O LEEP Hx of tonsillectomy Past Anesthesia History No Hx of Anesthesia Complications and No Family Hx of Anesthesia Complications History of PONV No Hx of PONV and No Hx of Motion Sickness Social History Smoking Status: Never smoker Hx Alcohol Use: No Hx Substance Use: No substance use type: does not use Physical Exam Vital Signs Last Vital Signs Temp 36.9 C 11/19/18 14:22 Pulse 114 H 11/19/18 16:10 Resp 20 11/19/18 14:22 BP 123/75 11/19/18 14:29 Pulse Ox 99 11/19/18 16:10 ENMT Mouth: no dentition abnormality Thyromental Distance: > or= 3.5 Finger Breadths Mallampati Class: II Neck normal visual inspection Respiratory normal respiratory effort Auscultation: lungs clear to auscultation bilaterally Cardiovascular Rate/Rhythm: regular rate and regular rhythm Psychiatric Orientation: alert
--- NOTE | 2018-11-19 17:15 | Labor Progress Brief Note ---
Date of Service November 19, 2018 Subjective comfortable Assessment & Plan (1) Normal labor: arom now. expectant management. pit if needed. anticipate . Physical Exam Constitutional: WD/WN, vitals as above Genitourinary: cx--/-2 arom--clear toco--q2-4min efm--140s with mod variabiliy, small accels, no decels Results & Data Vital Signs (Past 12 Hours) Vital Signs Temp Pulse Resp BP Pulse Ox 11/19/18 17:10 127 H 105/68 99 11/19/18 17:05 106 H 98 11/19/18 17:00 106 H 98 11/19/18 16:55 103 H 99 11/19/18 16:53 108 H 102/58 L 11/19/18 16:50 118 H 126/80 99 11/19/18 16:47 110 H 130/79 11/19/18 16:45 114 H 98 11/19/18 16:44 114 H 130/80 11/19/18 16:41 115 H 141/85 H 11/19/18 16:40 118 H 98 11/19/18 16:38 116 H 114/74 11/19/18 16:35 117 H 123/75 97 11/19/18 16:32 114 H 122/81 11/19/18 16:30 112 H 98 11/19/18 16:29 107 H 126/80 11/19/18 16:26 114 H 119/74 11/19/18 16:25 120 H 96 11/19/18 16:23 129 H 87 L 11/19/18 16:20 124 H 98 11/19/18 16:15 108 H 97 11/19/18 16:10 114 H 99 11/19/18 16:05 109 H 98 11/19/18 16:00 73 81 L 11/19/18 14:29 114 H 123/75 11/19/18 14:22 36.9 C 121 H 20 121/85 11/19/18 14:18 121 H 121/85
[2018-11-19] MEDS ORDERED: METHYLERGONOVINE MALEATE 0.2 MG/ML AMP ONE (19:41)
[2018-11-19] MEDS ORDERED: HYDROCORTISONE ACETATE 25 MG SUPP PR PRN (20:04)
[2018-11-19] MEDS ORDERED: SUPERCREAM 0.870% 15 GM JAR EXT PRN (20:04)
[2018-11-19] MEDS ORDERED: METHYLERGONOVINE MALEATE 0.2 MG/ML AMP IM ONE (20:04)
[2018-11-19] MEDS ORDERED: BENZOCAINE 20% AER SPR 82.5 GM CAN EXT PRN (20:04)
[2018-11-19] MEDS ORDERED: OXYCODONE/ACETAMINOPHEN 5mg/325mg TAB PO PRN (20:04)
[2018-11-19] MEDS ORDERED: DIPHTHERIA/TETANUS/PERTUSSIS 0.5 ML SYR/VIAL IM ONE (20:04)
[2018-11-19] MEDS ORDERED: BISACODYL 10 MG SUPP PR PRN (20:04)
[2018-11-19] MEDS ORDERED: ONDANSETRON INJ 2 MG/ML 2 ML VIAL IV STA (20:36)
[2018-11-19] MEDS ORDERED: DOCUSATE SODIUM 100 MG CAP PO SCH (21:00)
--- NOTE | 2018-11-19 23:10 | Anesthesia Procedure Note ---
Date of Service November 19, 2018 Anesthesia Post Epidural Note Vital Signs Vital Signs: Temp Pulse Resp BP Pulse Ox 11/19/18 21:38 106 H 119/68 11/19/18 21:24 111 H 127/65 11/19/18 21:09 109 H 129/72 11/19/18 20:54 102 H 124/77 11/19/18 20:39 101 H 128/79 11/19/18 20:24 105 H 130/76 11/19/18 20:09 111 H 120/69 11/19/18 20:00 37.3 C 11/19/18 19:54 111 H 123/71 11/19/18 19:44 112 H 135/68 11/19/18 19:41 120 H 98 11/19/18 19:36 117 H 98 11/19/18 19:31 147 H 98 11/19/18 19:26 125 H 92 11/19/18 19:24 116 H 135/80 11/19/18 19:21 117 H 97 11/19/18 19:16 105 H 98 11/19/18 19:11 110 H 99 11/19/18 19:09 125 H 123/80 11/19/18 19:05 112 H 98 11/19/18 19:00 106 H 99 11/19/18 18:56 37.1 C 18 11/19/18 18:55 116 H 98 11/19/18 18:54 111 H 143/87 H 11/19/18 18:50 114 H 99 11/19/18 18:45 113 H 99 11/19/18 18:40 110 H 100 11/19/18 18:39 106 H 133/83 11/19/18 18:35 115 H 99 11/19/18 18:30 111 H 99 11/19/18 18:25 110 H 100 11/19/18 18:20 117 H 99 11/19/18 18:15 119 H 99 11/19/18 18:10 105 H 135/84 100 11/19/18 18:05 108 H 99 11/19/18 18:00 107 H 100 11/19/18 17:55 110 H 99 11/19/18 17:53 105 H 110/68 11/19/18 17:50 116 H 100 11/19/18 17:45 108 H 98 11/19/18 17:40 112 H 99 05/23/19 17:39 107 H 103/66 11/19/18 17:35 104 H 99 11/19/18 17:30 110 H 99 11/19/18 17:25 111 H 98 11/19/18 17:24 111 H 112/66 11/19/18 17:20 106 H 99 11/19/18 17:15 112 H 99 11/19/18 17:10 127 H 105/68 99 11/19/18 17:05 106 H 98 11/19/18 17:00 106 H 98 11/19/18 16:55 103 H 99 11/19/18 16:53 108 H 102/58 L 11/19/18 16:50 118 H 126/80 99 11/19/18 16:47 110 H 130/79 11/19/18 16:45 114 H 98 11/19/18 16:44 114 H 130/80 11/19/18 16:41 115 H 141/85 H 11/19/18 16:40 118 H 98 11/19/18 16:38 116 H 114/74 11/19/18 16:35 117 H 123/75 97 11/19/18 16:32 114 H 122/81 11/19/18 16:30 112 H 98 11/19/18 16:29 107 H 126/80 11/19/18 16:26 114 H 119/74 11/19/18 16:25 120 H 96 11/19/18 16:23 129 H 87 L 11/19/18 16:20 124 H 98 11/19/18 16:15 108 H 97 11/19/18 16:10 114 H 99 11/19/18 16:05 109 H 98 11/19/18 16:00 73 81 L 11/19/18 14:29 114 H 123/75 11/19/18 14:22 36.9 C 121 H 20 121/85 11/19/18 14:18 121 H 121/85 Pain Intensity Bilateral Lower Abdomen: Pain Intensity: 0 Notes Mental Status: alert / awake / arousable Nausea / Vomiting: adequately controlled Pain: adequately controlled Airway Patency, RR, SpO2: stable & adequate BP & HR: stable & adequate Hydration State: stable & adequate Neuraxial Anesthesia: was administered and sensory block is resolving Anesthetic Complications: no major complications apparent and Pt Satisfied with anesthetic care Epidural: Removed without complications and With tip intact
[2018-11-19] MEDS: guaiFENesin 600 MG TABCR PO SCH (23:17)
--- NOTE | 2018-11-19 23:42 | Delivery Summary ---
DATE OF OPERATION: 11/19/2018 DATE OF DELIVERY: 11/19/2018 PREOPERATIVE DIAGNOSES: 1. Intrauterine at 37 and 4/7 weeks. 2. Active labor. POSTOPERATIVE DIAGNOSES: 1. Intrauterine at 37 and 4/7 weeks. 2. Active labor. PROCEDURES: 1. Epidural anesthesia. 2. Amniotomy for clear fluid. 3. Normal spontaneous vaginal delivery. 4. Second degree perineal laceration with repair. SURGEON: Sandrita Elise MD ANESTHESIA: Epidural. ESTIMATED BLOOD LOSS: 350 mL. PROCEDURE: The patient presents to labor and delivery in active labor at 4-5 cm dilated and loki every 3-4 minutes. She underwent an epidural anesthetic. She was GBS negative. She underwent amniotomy for clear fluid. She progressed spontaneous to complete-complete and +2 station. She then pushed for over approximately 3-4 contractions to deliver a viable male infant in NOVA presentation. There was a tight nuchal cord on the perineum, so it was clamped and cut at the perineum. The nose and mouth were bulb suctioned and the rest of the was then delivered without difficulty. The infant was then placed directly on the maternal abdomen for drying and attention. Cord blood was obtained. Placenta was delivered spontaneously intact with a 3-vessel cord. Cervix, sulci and rectum were examined and found to be intact. A second degree perineal laceration was repaired with 3-0 Vicryl in normal standard fashion. Hemostasis obtained with dilute Pitocin and IM Methergine. Apgars were 8 and 9. Mother and baby doing well at the end of the delivery. I attest to the content of the Intraoperative Record and any orders documented therein. Any exception s are noted below.
[2018-11-20] MEDS: IBUPROFEN 600 MG TAB PO PRN ×3 (01:13→15:31)
[2018-11-20 05:59] LABS: Hematocrit (blood only) 35.6 % (37-47); Hemoglobin 12.2 g/dL (12.0-16.0)
--- NOTE | 2018-11-20 06:45 | Obstetrical Progress Note ---
Date of Service <Jose Brown MD - Last Filed: 11/20/18 06:53> November 20, 2018 Assessment & Plan <Jose Brown MD - Last Filed: 11/20/18 06:53> (1) (spontaneous vaginal delivery): 28 year old day 1 s/p Vital Signs Reviewed and WNL Hemoglobin 12.2 lochia minimal Blood type O+, GBS -, Rubella Immune Patient doing very well clinically, eating, walking, passing gas, and using restroom without difficulty Encouraged ambulation as tolerated Bottle feeding Went over discharge instructions Subjective <Jose Brown MD - Last Filed: 11/20/18 06:53> Ambulation: ambulating normally Voiding: no voiding problems Passing Gas:: Yes Diet Tolerance:: regular diet Lochia:: Small Feeding Type:: bottle feeding Current Pain Level(1-10): 4 Patient doing well today, says she has some crampy abdominal pain and a small amount of vaginal tenderness. Otherwise doing well, smoother than her last . No other questions or concerns at this time. Constitutional: no fever and no chills Respiratory: no cough and no dyspnea Cardiovascular: no chest pain, no dyspnea and no calf pain Gastrointestinal: + abdominal pain (Crampy Mild); no nausea and no vomiting Physical Exam <Jose Brown MD - Last Filed: 11/20/18 06:53> Vital Signs (Past 24 Hours) Last Vital Signs Temp 36.6 C 11/20/18 03:40 Pulse 80 11/20/18 03:40 Resp 20 11/20/18 03:40 BP 115/79 11/20/18 03:40 Pulse Ox 98 11/20/18 03:40 Constitutional well developed, well nourished, cooperative and comfortable Respiratory normal respiratory effort, lungs clear to auscultation Cardiovascular Rate/Rhythm: regular rate and regular rhythm Heart Sounds: no click, no gallop, no murmur and no cardiac rub Extremities: no calf tenderness Gastrointestinal (Abdomen) Percussion/Palpation: abdomen soft Genitourinary OB Exam Abdomen: + fundal height Fundus: + firm and + relation to umbilicus (1 cm below umbilicus); not tender <Sandrita Elise MD, FACOG - Last Filed: 11/20/18 06:57> Co-Signing Physician Notes Resident Physician Supervision Note: I interviewed and examined the patient. Discussed with Dr. Brown and agree with findings and plan as documented in the note. Any exceptions or clarifications are listed here: Doing well. Routine care. Documented By: Sandrita Elise MD, FACOG Resident Activity Tracking <Jose Brown MD - Last Filed: 11/20/18 06:53> Resident Involvement: Resident Care Provided Care Provided: OB Delivery
[2018-11-20] MEDS: guaiFENesin 600 MG TABCR PO SCH (07:35)
[2018-11-20] MEDS ORDERED: PRENATAL VITAMIN 1 TAB PO SCH (09:00)
[2018-11-20] MEDS ORDERED: LORATADINE 10 MG TAB PO SCH (09:00)
[2018-11-20] MEDS: ACETAMINOPHEN 325 MG TAB PO PRN ×2 (09:12→16:18)
[2018-11-20] MEDS ORDERED: BISACODYL 5 MG TABEC PO SCH (20:00)
== END 2018-11-20 20:24 | disposition home or self-care (01) | DRG 807 ==
LOC: OPB 14:14 → 4S1 14:16 → 4S2 22:20